=== PATIENT | female | born 2005 | race Caucasian/White ===

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

== ENCOUNTER 2024-04-28 02:06 | Emergency (ER) | payer BC, SELFPAY ==
[2024-04-28 02:18] VITALS: BP 116/84; PULSE 88; RESP 18; TEMP 36.8; O2SAT 98; BMI 24.9
[2024-04-28 02:43] LABS: Appearance Urine Turbid; Color Urine Orange; Glucose Urine UA Negative (Negative); Leukocyte Esterase Urine Large (3+) (Negative); Nitrite Urine Positive (Negative); PH 6.5 (5.0-9.0); Specific Gravity - Urine 1.015 (1.005-1.025); UMIC TRIGGER UACC YES; Urine Blood Large (3+) (Negative); Urine Ketones Negative (Negative); Urine Protein >=1000 (4+) mg/dL (Neg-Trace)
[2024-04-28 02:44] LABS: UPreg QC Valid YES; Urine Pregnancy NEGATIVE (NEGATIVE)
[2024-04-28 02:52] LABS: Bacteria Urine Trace (None Seen); Hyaline Casts Urine 0-2 /LPF (0-2); RBC Urine >20 /HPF (0-2); UACC Culture Trigger YES; WBC Urine >50 /HPF (0-5)
[2024-04-28 03:47] VITALS: BP 109/72; PULSE 95; RESP 16; O2SAT 100
--- NOTE | 2024-04-28 04:44 | ED.FEMALEGU ---
HPI - Female Genitourinary General Chief complaint: Urogenital-Female Stated complaint: UTI? Time Seen by Provider: 04/28/24 04:44 Source: patient Mode of arrival: ambulatory Limitations: no limitations History of Present Illness ED Provider: tai HOYOS Narrative: Patient otherwise healthy complaining of dysuria frequency since last night no fever no chills does have slight nausea no flank pain no vaginal discharge no history of kidney stone Related Data Home Medications ?Medication ?Instructions ?Recorded ?Confirmed dextroamphetamine-amphetamine 5 mg 1 tab PO BID 11/15/23 11/15/23 tablet ferrous gluconate 324 mg (37.5 mg 324 mg PO DAILY 11/15/23 11/15/23 iron) tablet levonorgestrel-ethinyl estradiol 1 tab PO DAILY 11/15/23 11/15/23 0.1 mg-20 mcg tablet (Sronyx) montelukast 10 mg tablet 10 mg PO BEDTIME 11/15/23 11/15/23 paroxetine HCl 20 mg tablet 20 mg PO DAILY 11/15/23 11/15/23 Previous Rx's ?Medication ?Instructions ?Recorded cefuroxime axetil 250 mg tablet 250 mg PO BID 7 days #14 tabs 04/28/24 Allergies Allergy/AdvReac Type Severity Reaction Status Date / Time No Known Allergies Allergy Verified 04/28/24 02:20 Review of Systems Review of Systems: Yes all other systems are reviewed and are negative [facility] Social History Social History Alcohol intake: current Alcohol intake frequency: holidays/special occasions only Smoked in Last 30 Days: No Substance Use Type: Marijuana Advance Directives: No Patient : No Physical Exam Vital Signs: Vital Signs: Last Vital Signs Temp 98.3 F 04/28/24 05:21 Pulse 95 04/28/24 05:21 Resp 16 04/28/24 05:21 BP 109/72 04/28/24 05:21 Pulse Ox 100 04/28/24 05:21 O2 Del Method Room Air 04/28/24 05:21 BMI result Body Mass Index 24.9 Appearance: Alert. Oriented X3. No acute distress. Eyes: No pallor ENT: Pharynx normal. Oral Mucosa moist Neck: Normal inspection. Neck supple. CVS: Normal heart rate and rhythm. Pulses normal. Respiratory: No respiratory distress. Equal air entry bilateral, no wheezing/rales/rhonchi Abdomen: Soft and nontender. Bowel sounds are present, no mass palpable, no CVA tenderness Skin: Skin warm and dry. Normal skin color. Normal skin turgor. Neuro: Oriented X 3. Medications Administered Discontinued Medications Generic Name Dose Route Start Last Admin Trade Name Peter PRN Reason Stop Dose Admin Cefuroxime Axetil 500 mg 04/28/24 04:45 04/28/24 05:18 Cefuroxime Axetil 500 Mg Tablet PO 04/28/24 04:46 500 mg ONCE ONE Administration Ondansetron HCl 4 mg 04/28/24 05:00 04/28/24 05:18 Ondansetron Odt 4 Mg Tab.Rapdis TRANSLINGU 04/28/24 05:01 4 mg ONCE ONE Administration Medical Decision Making Medical Decision Making [facility] Narrative: Patient's uncomplicated UTI prescribe cefuroxime follow up as outpatient Lab Data [facility] Lab Attestation statement: I reviewed the patient's lab results. Labs: Lab Results 04/28/24 Range/Units 02:34 Urine Color [place] A Urine Appearance Turbid Urine pH 6.5 (5.0-9.0) Ur Specific [place] 1.015 (1.005-1.025) Urine Protein >=1000 (4+) H (Neg-Trace) mg/dL Urine Glucose (UA) Negative (Negative) mg/dL Urine Ketones Negative (Negative) mg/dL Urine Blood Large (3+) H (Negative) Urine Nitrite Positive H (Negative) Ur Leukocyte Esterase Large (3+) H (Negative) Urine RBC >20 H (0-2) /HPF Urine WBC >50 H (0-5) /HPF Ur Squamous Epith Cells 6-10 (0-2) /HPF Urine Bacteria Trace (None Seen) Hyaline Casts 0-2 (0-2) /LPF Urine Test NEGATIVE (NEGATIVE) Discharge Plan Discharge Clinical Impression: Urinary tract infection Patient Disposition: Home, Self-Care Instructions: Urinary Tract Infection in Women (ED) Additional Instructions: Drink plenty of fluids Take antibiotic as prescribed continue Continue azo for the pain Report to the ER/PCP if high-grade fever flank pain or vomiting Prescriptions: New cefuroxime axetil 250 mg tablet 250 mg PO BID 7 Days Qty: 14 0RF No Action levonorgestrel-ethinyl estrad [Sronyx] 0.1-20 mg-mcg tablet 1 tab PO DAILY paroxetine HCl 20 mg tablet 20 mg PO DAILY dextroamphetamine-amphetamine 5 mg tablet 1 tab PO BID ferrous gluconate 324 mg (37.5 mg iron) tablet 324 mg PO DAILY montelukast 10 mg tablet 10 mg PO BEDTIME Interventions: ED Discharge Assessment Last Done: 04/28/24 05:21 Discharge Date/Time: 04/28/24 05:25 Print Language: Panamanian
[2024-04-28] MEDS: Ondansetron ODT 4 MG TAB.RAPDIS TRANSLINGU (05:18)
[2024-04-28] MEDS: cefuroxime axetiL 500 MG TABLET PO (05:18)
[2024-04-28 05:21] VITALS: BP 109/72; PULSE 95; RESP 16; TEMP 36.8; O2SAT 100
== END 2024-04-28 05:25 | disposition home or self-care (01) ==
PROVIDERS: Emergency Provider Internal Medicine; PCP Nurse Practitioner Family
DX: N39.0 Urinary tract infection, site not specified (principal)
CPT/HCPCS: 81001; 81025; 87086; 99283; 99284

== ENCOUNTER 2024-04-29 20:43 | Emergency (ER) | payer BC, SELFPAY ==
[2024-04-29 21:02] VITALS: BP 121/80; PULSE 99; RESP 18; TEMP 36.8; O2SAT 95; BMI 24.8
[2024-04-29 21:18] LABS: MANUAL DIFF FLAG NO
[2024-04-29 21:20] LABS: Basophils Percent Auto 0.4 % (0-2); Eosinophils Absolute Auto 0.1 X10*3/uL (0.0-0.4); Eosinophils Percent Auto 1.1 % (0-4); Hematocrit 42.3 % (37.0-47.0); Hemoglobin 14.4 g/dl (12.0-16.0); Imm Gran Abs Auto 0.01 X10*3/uL (0.00-0.03); Imm Gran Pct Auto 0.1 % (0.0-0.4); Lymphocytes Absolute Auto 3.6 X10*3/uL (1.2-4.9); Lymphocytes Percent Auto 42.7 % (20-40); Mean Corpuscular Hemoglobin 30.3 pg (27.0-33.0); Mean Corpuscular Volume 89.1 fL (80.0-98.0); Monocytes Absolute Auto 0.7 X10*3/uL (0.1-1.2); Monocytes Percent Auto 7.8 % (2-11); Neutrophils Absolute Auto 4.1 x10*3/uL (2.0-8.3); Neutrophils Percent Auto 47.9 % (45-73); Platelet Count 255 X10*3/uL (160-400); Red Blood Count 4.75 X10*6/uL (4.20-5.50); Red Cell Distribution Width 11.9 % (11.0-16.0); White Blood Count 8.4 X10*3/uL (4.8-10.8)
[2024-04-29 21:22] LABS: Appearance Urine Clear; Color Urine Dark Yellow; Glucose Urine UA Negative (Negative); Leukocyte Esterase Urine Small (1+) (Negative); Nitrite Urine Positive (Negative); Specific Gravity - Urine <= 1.005 (1.005-1.025); UMIC TRIGGER UACC YES; Urine Blood Negative (Negative); Urine Ketones Negative (Negative); Urine Protein Negative (Neg-Trace)
[2024-04-29 21:34] LABS: Alanine Aminotransferase 18 U/L (0-31); Albumin Level 4.3 g/dL (3.5-5.0); Alkaline Phosphatase 98 U/L (39-117); Anion Gap 15 (12-20); Aspartate Amino Transferase 21 U/L (5-31); Bilirubin Total 0.3 mg/dL (0.0-1.0); Blood Urea Nitrogen 7 mg/dL (9-16); Calcium 8.9 mg/dL (8.4-10.2); Carbon Dioxide 28 mmol/L (22-29); Chloride 101 mmol/L (96-108); Creatinine Clr Calc Pharmacy 115.9; Estimated Glomerular Filt Rate > 60; Glucose Random 95 mg/dL (60-115); Potassium 3.7 mmol/L (3.3-5.1); Sodium 140 mmol/L (135-145); Total Protein 7.6 g/dL (6.5-8.0)
[2024-04-29 21:51] LABS: Bacteria Urine Trace (None Seen); Hyaline Casts Urine 0-2 /LPF (0-2); RBC Urine 0-2 /HPF (0-2); UACC Culture Trigger YES
--- NOTE | 2024-04-29 23:38 | PC.NURSE ---
Upon bringing pt back to room to be seen by provider pt became teary eyed and stated she no longer wanted to be seen I just want to go home and sleep Pt told she was being brought to a bed where she can lay down, pt still wanted to leave stating I will make a doctors appointment tomorrow morning
== END 2024-04-29 23:42 | disposition left against medical advice (07) ==
PROVIDERS: Emergency Provider Emergency Medicine Emergency Medical Services; PCP Nurse Practitioner Family
DX: R10.9 Unspecified abdominal pain (principal); Z53.21 Procedure and treatment not carried out due to patient leaving prior to being seen by health care provider
CPT/HCPCS: 36415; 80053; 81001; 85025; 87086; 99281; 99282